=== PATIENT | female | born 1975 | race Caucasian/White ===

== ENCOUNTER 2019-11-07 21:12 | Emergency (ER) | payer BC ==
[~2019-11-07] VITALS: Ht 172.7 cm; Wt 8.0 kg
[2019-11-07] MEDS ORDERED: IV NORMAL SALINE 1,000ML 1,000 ML IV ONE (22:30)
[2019-11-07] MEDS ORDERED: IOHEXOL 300 MG/ML 75 ML VIAL. IV ONE (22:30)
[2019-11-07] MEDS ORDERED: ONDANSETRON PF 4 MG/2 ML VIAL. IVP ONE (22:30)
[2019-11-07 23:05] LABS: BASO # 0.1 x10^3/uL (0.0-0.2); BASO % 0 % (0-3); EOS # 0.2 x10^3/uL (0.0-0.7); EOS % 1 % (0-3); HEMATOCRIT 44.2 % (36.0-47.0); HEMOGLOBIN 14.9 g/dL (12.0-15.5); LYMPH # 1.7 x10^3/uL (1.0-4.8); LYMPH % 13 % (24-48); MEAN CORPUSCULAR HEMOGLOBIN 32 pg (25-35); MEAN CORPUSCULAR HGB CONC 34 g/dL (31-37); MEAN CORPUSCULAR VOLUME 96 fL (79-100); MONO # 0.8 x10^3/uL (0.0-1.1); MONO % 6 % (0-9); NEUT % 80 % (31-73); PLATELET COUNT 173 x10^3/uL (140-400); RED BLOOD COUNT 4.61 x10^6/uL (3.50-5.40); RED CELL DISTRIBUTION WIDTH 13.4 % (11.5-14.5); WHITE BLOOD COUNT 13.9 x10^3/uL (4.0-11.0)
[2019-11-07 23:17] LABS: ALBUMIN 3.5 g/dL (3.4-5.0); ALBUMIN/GLOBULIN RATIO 0.9 (1.0-1.7); CREATININE 0.7 mg/dL (0.6-1.0); GFR 90.9; POTASSIUM 3.4 mmol/L (3.5-5.1); TOTAL BILIRUBIN 0.3 mg/dL (0.2-1.0); TOTAL PROTEIN 7.2 g/dL (6.4-8.2)
--- NOTE | 2019-11-07 23:32 | PHYS DOC ---
Adult General Chief Complaint Chief Complaint: GI PROBLEM HPI HPI 44-year-old female presents with right lower quadrant abdominal pain. She started with general abdominal pain that was mild 2 days ago. She had to leave work yesterday due to the pain. It is now a sharp and stabbing feeling that is migrated to the right lower quadrant. She went to her primary physician and try to order a CT scan, but the entrance coming tonight it. The patient did not want come to the emergency room, but the pain was too great at home so she came in. She is now quite tender. It was painful bouncing in the car on the way over here. She still has her appendix, gallbladder, uterus and ovaries. She's had ovarian cysts in the past, but this does not feel similar. She denies fever or chills. She has had several episodes of vomiting due to the pain. Review of Systems Review of Systems Constitutional: Denies fever or chills [] Eyes: Denies change in visual acuity, redness, or eye pain [] HENT: Denies nasal congestion or sore throat [] Respiratory: Denies cough or shortness of breath [] Cardiovascular: No additional information not addressed in HPI [] GI: Right lower quadrant abdominal pain, nausea, vomiting. Denies bloody stools or diarrhea [] : Denies dysuria or hematuria [] Musculoskeletal: Denies back pain or joint pain [] Integument: Denies rash or skin lesions [] Neurologic: Denies headache, focal weakness or sensory changes [] Endocrine: Denies polyuria or polydipsia [] All other systems were reviewed and found to be within normal limits, except as documented in this note. Current Medications Current Medications Current Medications Medications (Trade) Dose Ordered Sig/Henok Start Time Stop Time Status Last Admin Dose Admin Iohexol (Omnipaque 300 Mg/ml) 75 ml 1X ONCE 11/07/19 22:30 11/07/19 22:34 DC 11/07/19 23:00 75 ML Ondansetron HCl (Zofran) 4 mg 1X ONCE 11/07/19 22:30 11/07/19 22:34 DC 11/07/19 22:38 4 MG Sodium Chloride 1,000 ml @ 1,000 mls/hr 1X ONCE 11/07/19 22:30 11/07/19 23:29 DC 11/07/19 22:37 1,000 MLS/HR Allergies Allergies Allergies Coded Allergies Type Severity Reaction Last Updated Verified No Known Drug Allergies 11/07/19 No Physical Exam Physical Exam Constitutional: Well developed, well nourished, moderate acute distress, non- toxic appearance. [] HENT: Normocephalic, atraumatic, bilateral external ears normal, oropharynx moist, no oral exudates, nose normal. [] Eyes: PERRLA, EOMI, conjunctiva normal, no discharge. [] Neck: Normal range of motion, no tenderness, supple, no stridor. [] Cardiovascular:Heart rate regular rhythm, no murmur [] Lungs & Thorax: Bilateral breath sounds clear to auscultation [] Abdomen: Bowel sounds normal, soft, right lower quadrant tenderness with involuntary guarding, no masses, no pulsatile masses. [] Skin: Warm, dry, no erythema, no rash. [] Back: No tenderness, no CVA tenderness. [] Extremities: No tenderness, no cyanosis, no clubbing, ROM intact, no edema. [] Neurologic: Alert and oriented X 3, normal motor function, normal sensory function, no focal deficits noted. [] Psychologic: Affect normal, judgement normal, mood normal. [] Current Patient Data Lab Results Laboratory Tests Test 11/07/19 22:30 White Blood Count 13.9 x10^3/uL (4.0-11.0) H Red Blood Count 4.61 x10^6/uL (3.50-5.40) Hemoglobin 14.9 g/dL (12.0-15.5) Hematocrit 44.2 % (36.0-47.0) Mean Corpuscular Volume 96 fL (79-100) Mean Corpuscular Hemoglobin 32 pg (25-35) Mean Corpuscular Hemoglobin Concent 34 g/dL (31-37) Red Cell Distribution Width 13.4 % (11.5-14.5) Platelet Count 173 x10^3/uL (140-400) Neutrophils (%) (Auto) 80 % (31-73) H Lymphocytes (%) (Auto) 13 % (24-48) L Monocytes (%) (Auto) 6 % (0-9) Eosinophils (%) (Auto) 1 % (0-3) Basophils (%) (Auto) 0 % (0-3) Neutrophils # (Auto) 11.0 x10^3uL (1.8-7.7) H Lymphocytes # (Auto) 1.7 x10^3/uL (1.0-4.8) Monocytes # (Auto) 0.8 x10^3/uL (0.0-1.1) Eosinophils # (Auto) 0.2 x10^3/uL (0.0-0.7) Basophils # (Auto) 0.1 x10^3/uL (0.0-0.2) Sodium Level 136 mmol/L (136-145) Potassium Level 3.4 mmol/L (3.5-5.1) L Chloride Level 100 mmol/L (98-107) Carbon Dioxide Level 24 mmol/L (21-32) Anion Gap 12 (6-14) Blood Urea Nitrogen 16 mg/dL (7-20) Creatinine 0.7 mg/dL (0.6-1.0) Estimated GFR (Cockcroft-Gault) 90.9 BUN/Creatinine Ratio 23 (6-20) H Glucose Level 97 mg/dL (70-99) Calcium Level 9.0 mg/dL (8.5-10.1) Total Bilirubin 0.3 mg/dL (0.2-1.0) Aspartate Amino Transferase (AST) 7 U/L (15-37) L Alanine Aminotransferase (ALT) 22 U/L (14-59) Alkaline Phosphatase 53 U/L (46-116) Total Protein 7.2 g/dL (6.4-8.2) Albumin 3.5 g/dL (3.4-5.0) Albumin/Globulin Ratio 0.9 (1.0-1.7) L EKG EKG [] Radiology/Procedures Radiology/Procedures [] Impressions: Study: CT abdomen/pelvis with intravenous contrast Indication: Right lower quadrant pain. Nausea and vomiting. Comparison: None. Technique: Helical CT imaging performed of the abdomen and pelvis after the intravenous administration of 75 cc Omnipaque 300 contrast. Sagittal and coronal reformats were obtained. One or more of the following individualized dose reduction techniques were utilized for this examination: 1. Automated exposure control 2. Adjustment of the mA and/or kV according to patient size 3. Use of iterative reconstruction technique. Findings: Very small fat-containing diaphragmatic hernia on the left. Fatty infiltration along the falciform ligament. Unremarkable gallbladder, pancreas, spleen, adrenal glands and kidneys. Unremarkable urinary bladder. 2 separate endometrial limbs are noted with a relatively normal uterine fundal contour in keeping with a septate uterus. Reactive wall thickening of the sigmoid colon in the setting of appendicitis. Appendicolith seen within the right hemipelvis on image 70 series 2. A few foci of air adjacent to this appendicolith are noted. Surrounding phlegmonous changes and a small amount of fluid. Peripherally enhancing focus anterior to the uterus on image 25 series 3 measures up to 2.1 cm. Reactive wall thickening of scattered distal small bowel loops. No small bowel obstruction or perforation. Linearly increased density within the stomach and duodenum may be related to ingested radiodense material. Unremarkable aortic caliber. Scattered calcified and noncalcified atheromatous plaque. Prominent right iliac chain lymph node on image 72 series 2 is likely reactive. Scattered osseous degenerative changes such as at the L5-S1 level where there is discogenic arthrosis, endplate remodeling and facet degeneration. Bony neural foraminal encroachment on the left. Discogenic arthrosis at L1-L2 as well and mild arthrosis at the sacroiliac joints. Impression: 1. Findings in keeping with ruptured acute appendicitis with phlegmonous changes at the expected location of the appendix and an appendicolith seen in this region. A peripherally enhancing structure measuring up to 2.1 cm in the region of inflammation (image 73 series 2) could represent a small abscess however the ovarian vein extends into this region and this could conceivably represent reactive inflammation of the ovary and an ovarian cyst. 2. Septate uterus incidentally noted. 3. Reactive wall thickening of the colon and small bowel in the region of inflammation. No bowel obstruction. 4. Additional chronic findings as above. Electronically signed by: SUAD SINGLETARY MD (11/07/2019 11:34 PM) [facility] DICTATED AND SIGNED BY: SUAD SINGLETARY MD DATE: 11/07/19 2339 CC: CRAIG MOSS DO; JULIET LANDEROS ~ Course & Med Decision Making Course & Med Decision Making Pertinent Labs and Imaging studies reviewed. (See chart for details) The patient has a white count of 13.9. Her pain I have given her 1 mg of Dilaudid and 4 mg of Zofran. She is given [address] saline[address] Her CT of the abdomen and pelvis shows a ruptured appendicitis. Order blood cultures and lactic acid. The patient will be started on 1 g of Rocephin and 500 mg of metronidazole IV. I spoke with Dr. Talbot, general surgery and he has requested the patient be admitted to the hospitalist at [facility]. His current plan is to treat this with antibiotics and possible drainage versus surgery. I have made the patient aware. She will transfer to [facility] by ambulance. I spoke with Dr. Avendano, the hospitalist, and he has accepted the patient for transfer and admission. [] Dragon Disclaimer Dragon Disclaimer This electronic medical record was generated, in whole or in part, using a voice recognition dictation system. Departure Departure: Impression: Primary Impression: Appendicitis Disposition: XFER SHT-TRM HOSP Condition: GUARDED Referrals: JULIET LANDEROS (PCP) Problem Qualifiers Primary Impression: Appendicitis Appendicitis type: acute appendicitis Acute appendicitis type: with loc alized peritonitis Appendicitis gangrene presence: unspecified whether gangrene present Appendicitis perforation presence: with perforation Appendicitis abscess presence: with abscess Qualified Codes: K35.33 - Acute appendicitis with perforation and localized peritonitis, with abscess CRAIG MOSS DO Nov 07, 2019 23:32
--- NOTE | 2019-11-07 23:37 | RAD ---
Study: CT abdomen/pelvis with intravenous contrast Indication: Right lower quadrant pain. Nausea and vomiting. Comparison: None. Technique: Helical CT imaging performed of the abdomen and pelvis after the intravenous administration of 75 cc Omnipaque 300 contrast. Sagittal and coronal reformats were obtained. One or more of the following individualized dose reduction techniques were utilized for this examination: 1. Automated exposure control 2. Adjustment of the mA and/or kV according to patient size 3. Use of iterative reconstruction technique. Findings: Very small fat-containing diaphragmatic hernia on the left. Fatty infiltration along the falciform ligament. Unremarkable gallbladder, pancreas, spleen, adrenal glands and kidneys. Unremarkable urinary bladder. 2 separate endometrial limbs are noted with a relatively normal uterine fundal contour in keeping with a septate uterus. Reactive wall thickening of the sigmoid colon in the setting of appendicitis. Appendicolith seen within the right hemipelvis on image 70 series 2. A few foci of air adjacent to this appendicolith are noted. Surrounding phlegmonous changes and a small amount of fluid. Peripherally enhancing focus anterior to the uterus on image 25 series 3 measures up to 2.1 cm. Reactive wall thickening of scattered distal small bowel loops. No small bowel obstruction or perforation. Linearly increased density within the stomach and duodenum may be related to ingested radiodense material. Unremarkable aortic caliber. Scattered calcified and noncalcified atheromatous plaque. Prominent right iliac chain lymph node on image 72 series 2 is likely reactive. Scattered osseous degenerative changes such as at the L5-S1 level where there is discogenic arthrosis, endplate remodeling and facet degeneration. Bony neural foraminal encroachment on the left. Discogenic arthrosis at L1-L2 as well and mild arthrosis at the sacroiliac joints. Impression: 1. Findings in keeping with ruptured acute appendicitis with phlegmonous changes at the expected location of the appendix and an appendicolith seen in this region. A peripherally enhancing structure measuring up to 2.1 cm in the region of inflammation (image 73 series 2) could represent a small abscess however the ovarian vein extends into this region and this could conceivably represent reactive inflammation of the ovary and an ovarian cyst. 2. Septate uterus incidentally noted. 3. Reactive wall thickening of the colon and small bowel in the region of inflammation. No bowel obstruction. 4. Additional chronic findings as above. Electronically signed by: SUAD SINGLETARY MD (11/07/2019 11:34 PM) [place] [id number]
[2019-11-07] MEDS ORDERED: HYDROmorphone PF 1 MG/ML DISP.SYRIN IV ONE (23:45)
[2019-11-07 23:54] LABS: BACTERIA,URINE 0 /HPF (0-FEW); BILIRUBIN,URINE NEG (NEG); CLARITY,URINE CLEAR; COLOR,URINE YELLOW; GLUCOSE,URINE NEG (NEG); NITRITE,URINE NEG (NEG); RBC,URINE OCC /HPF (0-2); SQUAMOUS EPITHELIAL CELL,UR OCC /LPF; UROBILINOGEN,URINE 0.2 mg/dL (0.2 mg/dL); WBC,URINE OCC /HPF (0-4)
[2019-11-08] MEDS ORDERED: cefTRIAXone SODIUM 1 GM VIAL ONE (00:07)
[2019-11-08] MEDS ORDERED: IV NORMAL SALINE 50ML 50 ML ONE (00:07)
[2019-11-08 00:15] VITALS: BP 119/69
[2019-11-08] MEDS ORDERED: HYDROmorphone PF 1 MG/ML DISP.SYRIN IV ONE (01:00)
== END 2019-11-08 01:28 | disposition short-term general hospital (02) ==
LOC: ER 21:12
DX: K35.33 Acute appendicitis with perforation, localized peritonitis, and gangrene, with abscess (principal); R11.2 Nausea with vomiting, unspecified
CPT/HCPCS: 36415; 74177; 80053; 81001; 83605; 85025; 96361; 96365; 96368; 96375; 96376; 99285; J0696; J1170; J2405; J3490; Q9967; J7030